=== PATIENT | male | born 1955 | race Caucasian/White ===

== ENCOUNTER 2018-11-02 12:22 | Inpatient (IN) | payer OTHER ==
[2018-11-02] VITALS (9 sets, daily range): BP systolic 114–134; BP diastolic 43–75; BMI 26.8
--- NOTE | ~2018-11-02 | HEMODYNAMI ---
PATIENT:GALILEO RAMIREZ MEDICAL RECORD: [id number] : 55 [facility] ADMISSION DATE: 11/02/18 Generatedon:11/08/20189:53 Patient name: GALILEO RAMIREZ Patient #: [id number] SSN: DO B: 1955 Date of study: 11/08/2018 Page: Of Hemodynamic Procedure Report Patient Data Patient Demographics Procedure consent was obtained First Name: GALILEO Gender: Male Last Name: JAMES : 1955 Patient #: [id number] Age: 63 year(s) Race: Unknown Additional ID: [id number] Contact details [address]: [address] [place] [address] State: [place] City: [place] Zip code: [address] Admission Admission Data Admission Date: 11/02/2018 Admission Time: 16:23 Room #: D.2108 Procedure Procedure Types Cath Procedure Peripheral Cath Diagnostic Procedure Biliary Procedure Description Procedure Date Procedure Date: 11/08/2018 Procedure Start Time: 9:01 Procedure Staff Name Function Jimmie Kaur MD Performing Physician Cody Carlton RT Monitor Juan Miguel Samuel CRNA Additional personnel Norma Wilkerson RN Nurse Sara Licea RN Nurse ARANZA GILLIAM RT Scrub Procedure Data Cath Procedure Fluoroscopy Diagnostic fluoroscopy Total fluoroscopy Time: 9.8 time: 9.8 min min Diagnostic fluoroscopy Total fluoroscopy dose: 257 dose: 257 mGy mGy Contrast Material Contrast Material Type Amount (ml) Isovue 300 30 Diagnostic catheters Device Type Used For End Catheter Placement Merit Impress KA 2 5Fr 40CM catheter ([id number]) Hemodynamics Rest Heart Rate: 49 (bpm) Snapshots Pre Cath Intra NCS Post Cath Vital Signs Time Heart Resp SPO2 etCO2 NIBP (mmHg) Rhythm Pain Sedation Rate (ipm) (%) (mmHg) Status Level (bpm) 8:42:49 49 2 100 9.8 146/69(120) NSR 0 (11) 10(A) , No pain 8:47:13 55 18 100 12.8 150/67(126) NSR 0 (11) 10(A) , No pain 8:51:35 60 15 96 3.7 131/71(105) NSR 0 (11) 10(A) , No pain 8:55:53 51 15 99 10.5 128/62(105) NSR 0 (11) 10(A) , No pain 9:00:11 54 12 99 9.8 123/61(94) NSR 0 (11) 10(A) , No pain 9:04:27 57 11 99 24.9 128/59(104) NSR 0 (11) 10(A) , No pain 9:08:45 62 12 98 10.5 123/62(100) NSR 0 (11) 10(A) , No pain 9:12:59 63 11 99 20.4 128/66(98) NSR 0 (11) 10(A) , No pain 9:17:15 63 12 99 23.4 132/65(107) NSR 0 (11) 10(A) , No pain 9:21:33 62 12 98 21.9 129/61(102) NSR 0 (11) 10(A) , No pain 9:25:50 62 12 98 23.4 128/64(102) NSR 0 (11) 10(A) , No pain 9:30:05 62 12 98 23.4 129/69(108) NSR 0 (11) 10(A) , No pain 9:34:24 58 13 98 23.4 129/62(100) NSR 0 (11) 10(A) , No pain 9:38:42 60 13 98 23.4 127/64(99) NSR 0 (11) 10(A) , No pain 9:42:56 61 12 97 18.1 131/69(104) NSR 0 (11) 10(A) , No pain 9:47:14 59 14 98 21.1 131/63(102) NSR 0 (11) 10(A) , No pain 9:51:32 49 14 98 20.4 124/59(97) NSR 0 (11) 10(A) , No pain Procedure Log Time Note 8:34:14 Norma Wilkerson RN sent for patient. Start room use. 8:34:19 Time tracking: Regular hours (M-F 7:00 - 5:00) 8:34:24 Plan of Care:Hemodynamics will remain stable., Cardiac rhythm will remain stable., Comfort level will be maintained., Respiratory function will remain adequate., Patient/ family verbilizes understanding of procedure., Procedure tolerated without complication., Recovers from procedure without complications.. 8:34:28 Patient received from Med II to IR Alert and oriented. Tansferred to table in Supine position. 8:34:30 Correct patient and procedure confirmed by team. 8:34:32 Signed procedure consent form obtained from patient. 8:34:34 ECG and BP/O2 sat monitors applied to patient. 8:34:37 8:35:08 Full Disclosure recording started 8:41:32 Vital chart was started 8:41:33 Baseline sample Acquired. 8:44:17 Juan Miguel Samuel CRNA present and monitoring patient for TIVA. 8:44:47 SEE ANESTHESIA NOTE FOR PRE PROCEDURE TIVA 8:44:50 8:48:30 Use device set IR Diagnostic 8:48:31 Sterile Angiographic Pack opened to sterile field. 8:48:32 Bag Decanter (2002S) opened to sterile field. 8:48:46 Right Abdomen was prepped with chlora-prep and draped in sterile fashion. 8:48:48 Alarms reviewed by Jimbo Singh 9:00:20 Physician arrived 9:00:20 --------ALL STOP TIME OUT------ 9:00:22 Final Timeout: patient, procedure, and site verified with staff and physician. All members of the team are in agreement. 9:00:27 Right abdomen site verified by team. 9:00:52 Fire Safety Assessment: A--An alcohol-based skin anteseptic being used preoperatively., C--Open oxygen or nitrous oxide is being used. 9:00:56 Sedation plan: TIVA Medication:Propofol 9:01:26 Maximum allowable Isovue 300 dose 238ml. Physician notified. (300ml for normal creatinines. For patients with creatinine of 1.7 or higher multiply weight(kg) x 5 divided by creatinine.) 9:01:39 Procedure started. 9:01:44 Local anesthetic to Abdominal area with Lidocaine 1% by Jimmie Kaur MD.INITIAL ACCESS ONLY 9:03:16 BAG, DRAINAGE EMPTY 600ML W/ASA (MUL230) opened to sterile field. 9:03:17 STOPCOCK 3-Way Large Bore ([id number]) opened to sterile field. 9:03:17 St Moody 10FR 23CM sheath opened to sterile field. 9:03:18 Disposable Biopsy Forceps (XR046O) opened to sterile field. 9:05:31 Cook BILIARY 12 FR drainage catheter (E76293) opened to sterile field. 9:05:56 SHANTI .035 15cm wire (N09723) opened to sterile field. 9:05:57 SUTURE ETHILON 2-0 BLK MONO FS opened to sterile field. 9:08:58 ROADRUNNER .035 145 glide wire (Q70194) opened to sterile field. 9:13:07 A Tribotek Impress KA 2 5Fr 40CM catheter (13868XN8) was advanced over the wire and used for . 9:13:09 MANN 180cm wire (V42448) opened to sterile field. 9:18:58 ARROW SUPERFLEX 8FR 45CM sheath opened to sterile field. 9:39:52 Procedure ended.(Physican Out) 9:40:13 Fluoroscopy time 09.80 minutes. 9:40:17 Flurop Dose total: 257 9:40:17 Fluoroscopy dose: 257 mGy 9:40:33 Contrast amount:Isovue 300 30ml. 9:40:35 Sharps counted by scrub and verified by R.N. 9:40:53 SEE ANESTHESIA NOTE FOR POST PROCEDURE TIVA 9:49:01 Insertion/operative site no bleeding no hematoma. 9:49:33 Procedure and supply charges have been captured, reviewed, submitted and are correct. 9:53:18 Report given to stylefruits. 9:53:22 Patient transfered to Med II with Bed. 9:53:44 Vital chart was stopped Device Usage Item Name Manufacture Quantity Catalog Hospital Part Current Minimal Lot# / Number Charge Number Stock Stock Serial# Code Sebastián Morrison [id number] 5 Angiographic Health Pack Bag Decanter Microtek 1 [id number] 21012 282330 5 () Medical Inc. BAG, Merit 1 [id number] 468006 739397 022800 5 DRAINAGE Medical EMPTY 600ML W/ASA (DRK102) STOPCOCK [employer]ale [employer] 1 [id number] 304181 4355 033355 [id number] 3-Way Large Bore (O26446) St Moody 10FR St Moody 1 676618 132825 862988 5 23CM sheath Disposable Olympus 1 FB-[id number] 096528 994959 5 Biopsy Forceps (VI740I) Cook BILIARY [facility] 1 B76838 139094 287299 703249 5 [id number] 12 FR drainage catheter (D79971) SHANTI .035 [facility] 1 Y81064 804223 269696 5 [id number] 15cm wire (E73485) SUTURE Ethicon 1 664H 421150 377024 5 ETHILON 2-0 BLK MONO [address] ROADRUNNER [facility] 1 T07111 298354 045332 028596 5 [id number] .035 145 glide wire (T48552) Merit Merit 1 [id number] 413992 310698 5 Impress KA 2 Medical 5Fr 40CM catheter (36285FV9) MANN 180cm Cook [facility] 1 C52312 335117 740775 5 wire (N60288) ARROW Teleflex 1 CL-45437 879910 974538 5 [id number] SUPERFLEX 8FR 45CM sheath Signature Audit [place] Stage Time Signature Unsigned Intra-Procedure 11/08/2018 Cody 9:53:38 AM Bianka RT (R) (CV) Signatures Monitor : Cody Signature : Catrachoield RT Date : Time : [facility] [address] [place] [address]
--- NOTE | ~2018-11-02 | HEMODYNAMI ---
PATIENT:GALILEO RAMIREZ MEDICAL RECORD: [id number] : 55 LOCATION:[facility] D.2301 ADMISSION DATE: 11/02/18 Generatedon:11/03/201813:14 Patient name: GALILEO RAMIREZ Patient #: [id number] SSN: DO B: 1955 Date of study: 11/03/2018 Page: Of Hemodynamic Procedure Report Patient Data Patient Demographics Procedure consent was obtained First Name: GALILEO Gender: Male Last Name: JAMES : 1955 Patient #: [id number] Age: 63 year(s) Race: Unknown Additional ID: [id number] Contact details Address: [address] [place] [address] State: [place] City: [place] Zip code: [address] Admission Admission Data Admission Date: 11/02/2018 Admission Time: 16:23 Room #: D.2301 Procedure Procedure Types Cath Procedure Peripheral Cath Diagnostic Procedure Biliary Procedure Description Procedure Date Procedure Date: 11/03/2018 Procedure Start Time: 12:02 Procedure Staff Name Function Kayce Kruger MD Performing Physician Cody Carlton RT Monitor Barbara Pedraza RT Scrub Norma Wilkerson RN Nurse Juan Miguel Samuel BILINGUAL RESEARCH INTERVIEWER Additional personnel Sara Licea RN Nurse Procedure Data Cath Procedure Fluoroscopy Diagnostic fluoroscopy Total fluoroscopy Time: time: 15.4 min 15.4 min Diagnostic fluoroscopy Total fluoroscopy dose: 226 dose: 226 mGy mGy Procedure Medications Medication Administration Route Dosage Heparin Flush Bag added to field 3 bags (1000units/500ml NS) Lidocaine 1% added to field 20 Hemodynamics Rest Heart Rate: 45 (bpm) Pre Cath Intra NCS Post Cath Vital Signs Time Heart Resp SPO2 etCO2 NIBP (mmHg) Rhythm Pain Sedation Rate (ipm) (%) (mmHg) Status Level (bpm) 11:35:10 52 26 98 15.6 116/85(96) NSR 0 (11) 10(A) , No pain 11:39:22 47 22 100 16.3 118/60(102) NSR 0 (11) 10(A) , No pain 11:43:34 42 16 100 0 129/58(95) NSR 0 (11) 10(A) , No pain 11:47:46 43 15 100 12.6 120/66(101) NSR 0 (11) 10(A) , No pain 11:52:00 44 17 100 17.1 139/60(108) NSR 0 (11) 10(A) , No pain 11:56:12 45 15 10.4 124/61(75) NSR 0 (11) 10(A) , No pain 12:00:30 63 16 100 11.9 140/59(105) NSR 0 (11) 10(A) , No pain 12:04:50 61 16 95 0 127/63(98) NSR 0 (11) 10(A) , No pain 12:09:06 62 17 91 0 109/58(84) NSR 0 (11) 10(A) , No pain 12:13:16 61 14 84 5.2 108/56(80) NSR 0 (11) 10(A) , No pain 12:17:26 60 20 100 0 107/61(86) NSR 0 (11) 10(A) , No pain 12:21:36 65 16 100 18.6 110/56(91) NSR 0 (11) 10(A) , No pain 12:25:46 60 17 100 14.1 119/56(92) NSR 0 (11) 10(A) , No pain 12:29:58 57 15 100 11.9 108/59(85) NSR 0 (11) 10(A) , No pain 12:34:08 55 15 100 0 104/55(83) NSR 0 (11) 10(A) , No pain 12:38:18 50 17 100 0 84/49(59) NSR 0 (11) 10(A) , No pain 12:43:12 61 16 100 6.7 120/66(102) NSR 0 (11) 10(A) , No pain 12:47:26 58 28 100 3.7 113/57(92) NSR 0 (11) 10(A) , No pain 12:51:30 57 21 100 3.7 107/51(78) NSR 0 (11) 10(A) , No pain 12:55:42 55 13 100 2.2 105/49(85) NSR 0 (11) 10(A) , No pain 12:59:52 54 13 100 3.7 103/53(80) NSR 0 (11) 10(A) , No pain 13:04:00 53 14 100 1.4 110/59(86) NSR 0 (11) 10(A) , No pain 13:08:10 53 14 5.2 107/57(82) NSR 0 (11) 10(A) , No pain 13:12:16 51 14 8.1 124/67(104) NSR 0 (11) 10(A) , No pain Medications Time Medication Route Dose Verified Delivered Reason Notes Effe ctiveness by by 11:37:10 Heparin Flush added 3 M J Long M J Long used for Bag to bags MD RINCON procedure (1000units/500ml field NS) 11:37:22 Lidocaine 1% added 20ml M J Long M J Long for local to vial MD RINCON anesthetic field Procedure Log Time Note 11:34:18 Norma Wilkerson RN sent for patient. Start room use. 11:34:20 Time tracking: Regular hours (M-F 7:00 - 5:00) 11:34:25 Plan of Care:Hemodynamics will remain stable., Cardiac rhythm will remain stable., Comfort level will be maintained., Respiratory function will remain adequate., Patient/ family verbilizes understanding of procedure., Procedure tolerated without complication., Recovers from procedure without complications.. 11:34:35 Patient received from ICU to IR Alert and oriented. Tansferred to table in Supine position. 11:34:36 Correct patient and procedure confirmed by team. 11:34:39 Signed procedure consent form obtained from patient. 11:34:40 ECG and BP/O2 sat monitors applied to patient. 11:34:42 Full Disclosure recording started 11:34:43 - 11:34:53 H&P Date Dictated: 11/03/2018 H&P Addendum completed by physician on day of procedure. (MUST COMPLETE FOR ALL OUTPATIENTS). 11:34:55 Pre-procedure instructions explained to patient. 11:34:55 Pre-op teaching completed and patient verbalized understanding. 11:37:08 SEE ANESTHESIA NOTE FOR PRE PROCEDURE TIVA 11:37:10 Heparin Flush Bag (1000units/500ml NS) 3 bags added to field was administered by Kayce Kruger MD; used for procedure; 11:37:22 Lidocaine 1% 20ml vial added to field was administered by Kayce Kruger MD; for local anesthetic; 11:37:36 Juan Miguel Samuel CRNA present and monitoring patient for TIVA. 11:38:10 Use device set IR Diagnostic 11:38:12 Bag Decanter (2002S) opened to sterile field. 11:38:13 Sterile Angiographic Pack opened to sterile field. 11:38:13 Tegaderm 4 x 4 (1626W) opened to sterile field. 11:42:58 Right Abdomen was prepped with betadine and draped in sterile fashion. 12:01:19 Physician arrived 12:01:20 --------ALL STOP TIME OUT------ 12:01:21 Final Timeout: patient, procedure, and site verified with staff and physician. All members of the team are in agreement. 12:01:26 Right abdomen site verified by team. 12:02:04 Fire Safety Assessment: A--An alcohol-based skin anteseptic being used preoperatively., C--Open oxygen or nitrous oxide is being used. 12:02:12 Sedation plan: TIVA Medication:Propofol 12:02:30 Procedure started. 12:02:36 Local anesthetic to Abdominal area with Lidocaine 1% by Kayce Kruger MD.INITIAL ACCESS ONLY 12:03:11 IV Extension Set opened to sterile field. 12:03:11 KIT, INTRODUCER ACCUSTICK II W/C ([id number]) opened to sterile field. 12:07:01 BAG, DRAINAGE EMPTY 600ML W/ASA (AXB707) opened to sterile field. 12:13:18 STOPCOCK 3-Way Large Bore (Z39907) opened to sterile field. 12:13:18 ROADRUNNER FIRM 260CM glide wire (C10525) opened to sterile field. 12:17:57 ARROW SUPERFLEX 8FR 45CM sheath opened to sterile field. 12:18:32 Del Real 180 wire (B29814) opened to sterile field. 12:22:33 GLIDE CATHETER 5FR ANGLED 65cm (CG507) opened to sterile field. 12:33:35 Cook BILIARY 10.2 FR drainage catheter (B39743) opened to sterile field . 12:34:24 AMPLATZ Super stiff Straight 260cm wire ([id number]) opened to sterile field. 12:37:59 SUTURE ETHILON 2-0 BLK MONO FS opened to sterile field. 12:47:38 Procedure ended.(Physican Out) 12:48:17 Fluoroscopy time 15.40 minutes. 12:48:21 Fluoroscopy dose: 226 mGy 12:48:21 Flurop Dose total: 226 12:49:12 SEE ANESTHESIA NOTE FOR POST PROCEDURE TIVA 13:13:49 Procedure and supply charges have been captured, reviewed, submitted an d are correct. 13:14:35 Vital chart was stopped Device Usage Item Name Manufacture Quantity Catalog Hospital Part Current Minimal Lot# / Number Charge Number Stock Stock Serial# Code Bag Decanter Microtek 1 [id number] 52461 808611 5 () Medical Inc. Sterile Cardinal 1 [id number] 180790 179324 5 Angiographic Health Pack Tegaderm 4 x 3M 1 1626W 709276 531655 371915 5 4 (1626W) IV Extension Hospira 1 56039-77 891817 74971 246928 5 [id number] Set KIT, [place] 1 [id number] 653210 776685 759001 5 [id number] INTRODUCER Scientific ACCUSTICK II W/C ([id number]) BAG, Merit 1 [id number] 767769 705817 659165 5 DRAINAGE Medical EMPTY 600ML W/ASA (TWH452) STOPCOCK [employer] 1 M12491 235233 6989 424515 5 2125259 3-Way Large Bore (A80161) ROADRUNNER [employer] 1 B39499 081349 353919 5 0307683 FIRM 260CM glide wire (C24656) ARROW Teleflex 1 CL-12134 256186 832136 5 [id number] SUPERFLEX 8FR 45CM sheath Del Real 180 [employer] [facility] 1 A42574 020041 929458 0634915 5 [id number] wire (J88502) GLIDE Terumo 1 CG507 092857 992472 5 CATHETER 5FR ANGLED 65cm (CG507) Cook BILIARY Cook Medical 1 S31524 066779 676912 437680 5 [id number] 10.2 FR drainage catheter (U40680) AMPLATZ [place] 1 [id number] 213193 03326 068046 5 [id number] Super stiff Scientific Straight 260cm wire ([id number]) SUTURE Ethicon 1 664H 574551 346507 5 ETHILON 2-0 BLK MONO FS Signature Audit [place] Stage Time Signature Unsigned Intra-Procedure 11/03/2018 Cody 1:14:31 PM Shuffield RT (R) (CV) Signatures Monitor : Cody Signature : Catrachoield RT Date : Time : [facility] [address] [place] [address]
--- NOTE | 2018-11-02 12:30 | NUR ---
PT ARRIVES A TRANSFER FROM [facility] FOR RENAL FAILURE AND CLOGGED BILE DUCT. PT IS AWAKE, LETHARGIC, ORIENTED X 4, RESPIRATIONS EVEN AND UNLABORED, ANTERIOR UPPER LOBES CLEAR TO AUSCULTATION, SKIN AND SCLERA ARE YELLOW WARM AND DRY, PULSES EQUAL AND STRONG, SALINE LOCK TO THE RIGHT AC, TRANSPARENT DRESSING CLEAN, DRY AND INTACT, FLUSHED WITHOUT DIFFICULTY, PERIPHAL EDEMA NOTED TO HANDS AND FEET, ROWELL CATHETER IN PLACE DRAINING TO GRAVITY WITH 150 ML OF DARK ORANGE URINE IN BAG, SECURED TO LEG WITH STAT LOCK DEVICE. PT IS BRADYCARDIC, RATE OF 43, S1, S2, DENIES NEEDS, MONITORING ESTABLISHED.
[2018-11-02 15:18] LABS: INR 1.95 (0.85-1.17); PROTIME 21.6 SECONDS (11.6-15.0)
[2018-11-02 15:19] LABS: APTT 36.9 SECONDS (22.8-39.4)
[2018-11-02 15:20] LABS: HEMATOCRIT 36.9 % (42.0-54.0); HEMOGLOBIN 13.5 g/dL (13.5-17.5); MCH 30.9 pg (26.0-34.0); MCHC 36.6 g/dL (31.0-37.0); MCV 84.4 fL (80.0-100.0); PLATELET COUNT 183 10x3/uL (130-400); RBC 4.37 10x6/uL (4.20-6.10); RDW 21.3 % (11.5-14.5); WBC 48.6 10x3/uL (4.8-10.8)
[2018-11-02 15:42] LABS: ALBUMIN 1.6 g/dL (3.4-5.0); ANION GAP 26.7 mmol/L (8-16); CALCIUM 8.1 mg/dL (8.5-10.1); CARBON DIOXIDE 14.1 mmol/L (21.0-32.0); CREATININE - SERUM 8.2 mg/dL (0.6-1.3); POTASSIUM - SERUM 3.8 mmol/L (3.5-5.1)
[2018-11-02 15:44] LABS: BILIRUBIN - TOTAL 33.56 mg/dL (0.2-1.3); PROTEIN - SERUM 5.3 g/dL (6.4-8.2)
--- NOTE | 2018-11-02 16:10 | NUR ---
1600 LAB NOTIFIED OF DRAW REQUEST AND ROOM NUMBER.
[2018-11-02 16:24] LABS: LYMPHOCYTES 67 % (15-50); NEUTROPHILS 33 % (40-80); PLATELET ESTIMATE NORMAL
--- NOTE | 2018-11-02 18:18 | NUR ---
PT ARRIVED ON UNIT VIA STRETCHER, HOOKED TO MONITORS, PT LETHARGIC AT THIS TIME, DOES AROUSE AND ANSWERS QUESTIONS, ALL PPP, VSS, CALL LIGHT IN REACH
--- NOTE | 2018-11-02 18:34 | NUR ---
PROCEDURE WAS INCOMPLETE. FAILED TO CANNULATE EFFORTS TO CANNULATE, NO BILE RETURN.
--- NOTE | 2018-11-02 19:00 | NUR ---
PT LETHARGIC, WILL AROUSE TO VOICE AND ANSWER MOST QUESTIONS. SHALLOW RESPIRATIONS, CLEAR/DIMINISHED LUNG SOUNDS. 2L O2 VIA NC, SPO2 97. PERIPHERAL PULSES PRESENT. BRADYCARDIC ON MONIOR, HR 55. ROWELL INTACT AND DRAINING DARK URINE. EYES AND SKIN JAUNDICED. MOUTH DRY, ORAL CARE PROVIDED AT THIS TIME. TEMP 95, CLAU HUGGER TURNED ON AT THIS TIME. PT REPOSITIONED FOR COMFORT. DENIES NEEDS AT THIS TIME. ROOM VISIBLE FROM NURSES STATION. CPOC.
--- NOTE | 2018-11-02 21:00 | NUR ---
INCONTINENT OF SMALL FORMED STOOL. PT GIVEN A BATH AND LINEN CHANGE. POSITIONED IN BED WITH PROMINENCES BRIDGED. VSS, DENIES PAIN. CALL LIGHT WITHIN PT REACH, ROOM VISIBLE FROM NURSES STATION. CPOC.
[2018-11-02] MEDS ORDERED: BAYER CHEWABLE81 MG PO (21:21)
--- NOTE | 2018-11-02 22:00 | NUR ---
NO VISITORS FOR [id number] VISITATION.
--- NOTE | 2018-11-02 23:00 | NUR ---
REASSESSMENT COMPLETE, SEE FLOWSHEET FOR ALL CHANGES. PT REPOSITIONED FOR COMFORT. ROWELL CATH CARE COMPLETED AT THIS TIME. VSS, TEMP 97.7. PT DENIES PAIN. DENIES NEEDS. CALL LIGHT WITHIN PT REACH, ROOM VISIBLE FROM NURSES STATION. CPOC.
[2018-11-02 23:11] LABS: APPEARANCE HAZY (CLEAR); BACTERIA FEW /hpf (NONE SEEN); BILIRUBIN 3+ (NEGATIVE); COLOR BROWN (YELLOW); EPITHELIAL CELLS 0-5 /hpf (0-5); GLUCOSE NEGATIVE (NEGATIVE); GRANULAR CAST 0-5 /lpf (NONE SEEN); HYALINE CAST 0-5 /lpf (NONE SEEN); KETONE NEGATIVE (NEGATIVE); NITRITE NEGATIVE (NEGATIVE); PROTEIN 1+ mg/dL (NEGATIVE); UROBILINOGEN NORMAL (NORMAL)
[2018-11-02 23:13] LABS: UDS - AMPHET NEGATIVE QUAL (NEGATIVE); UDS - BARB NEGATIVE QUAL (NEGATIVE); UDS - BENZO NEGATIVE QUAL (NEGATIVE); UDS - COCAINE NEGATIVE QUAL (NEGATIVE); UDS - OPIATE NEGATIVE QUAL (NEGATIVE); UDS - PCP NEGATIVE QUAL (NEGATIVE); UDS - THC POSITIVE QUAL (NEGATIVE)
[2018-11-03] VITALS (28 sets, daily range): BP systolic 107–130; BP diastolic 52–94; BMI 26.7
--- NOTE | 2018-11-03 00:54 | NUR ---
PT REPOSITIONED FOR COMFORT, PARTIAL LINEN CHANGE COMPLETE. VSS, DENIES PAIN AT THIS TIME. CALL LIGHT WITHIN PT REACH, ROOM VISIBLE FROM NURSES STATION. CPOC.
--- NOTE | 2018-11-03 03:34 | NUR ---
SEE FLOWSHEET FOR REASSESSMENT FINDINGS. PT REPOSITIONED WITH PROMINENCES BRIDGED. VSS, NO C/O PAIN. DENIES NEEDS. CALL LIGHT WITHIN PT REACH, ROOM VISIBLE FROM NURSES STATION. CPOC.
[2018-11-03 04:03] LABS: BASOPHILS 0 % (0-2); EOSINOPHILS 0 % (0-7); HEMATOCRIT 29.8 % (42.0-54.0); HEMOGLOBIN 10.9 g/dL (13.5-17.5); IMMATURE GRANULOCYTES 0.7 % (0-5); LYMPHOCYTES 63.2 % (15-50); MCH 30.3 pg (26.0-34.0); MCHC 36.6 g/dL (31.0-37.0); MCV 82.8 fL (80.0-100.0); MONOCYTES 0.2 % (2-11); NEUTROPHILS 35.9 % (40-80); PLATELET COUNT 142 10x3/uL (130-400); RDW 20.7 % (11.5-14.5); WBC 34.1 10x3/uL (4.8-10.8)
[2018-11-03 04:09] LABS: APTT 41.3 SECONDS (22.8-39.4); INR 1.67 (0.85-1.17); PROTIME 19.1 SECONDS (11.6-15.0)
[2018-11-03 04:28] LABS: ALBUMIN 1.6 g/dL (3.4-5.0); CREATININE - SERUM 7.3 mg/dL (0.6-1.3); PHOSPHOROUS 7.9 mg/dL (2.5-4.9); PROTEIN - SERUM 4.7 g/dL (6.4-8.2)
[2018-11-03 04:38] LABS: ANION GAP 20.8 mmol/L (8-16); CARBON DIOXIDE 21.2 mmol/L (21.0-32.0); MAGNESIUM - SERUM 4.1 mg/dL (1.8-2.4)
[2018-11-03 04:39] LABS: BILIRUBIN - TOTAL 27.92 mg/dL (0.2-1.3); CALCIUM 6.8 mg/dL (8.5-10.1)
--- NOTE | 2018-11-03 05:30 | NUR ---
DR. LARSON UPDATED OF PT STATUS AND CRITICAL LABS, ELECTROLYTE PROTOCOL ORDERED. PER MARSHA, IR TO BE NOTIFIED OF CONSULT BETWEEN [phone] 11/03/18.
--- NOTE | 2018-11-03 06:20 | NUR ---
CONTACTED SANDER COMBS MADE AWARE OF CONSULT.
--- NOTE | 2018-11-03 06:30 | NUR ---
LIZETTE UPDATED ON CRITICAL LAB VALUES, NO NEW ORDERS REC'D AT THIS TIME.
--- NOTE | 2018-11-03 07:00 | NUR ---
SHIFT ASSESSMENT COMPELTED. PT CARE ASSUMED. MONITORS ON AND WORKING, VITALS STABLE, PT SINUS BRADYCARDIA. PT AWAKE AND ALERT, CALL LIGHT WITHIN REACH, SEE FLOW SHEET FOR FURTHER DETAILS. WILL CONTINUE TO OBSERVE.
--- NOTE | 2018-11-03 09:00 | NUR ---
PT AWAKE AND ALERT, MONITORS ON AND WORKING, CALL LIGHT WITHIN REACH, WILL CONTINUE TO OBSERVE.
--- NOTE | 2018-11-03 09:30 | NUR ---
PT IN MRI.
--- NOTE | 2018-11-03 10:00 | NUR ---
PT BACK FROM MRI, COMPLETE LINEN CHANGE COMPLETED AT THIS TIME, MONITORS ON AND WORKING, VITALS STABLE, PT REMAINS SINUS BRADYCARDIA. PT AWAKE AND ALERT, NO SIGNS/SYMPTOMS OF PAIN OR DISCOMFORT NOTED. CALL LIGHT WITHIN REACH, WILL CONTINUE TO OBSERVE.
--- NOTE | 2018-11-03 11:00 | NUR ---
PT AWAKE AND ALERT, NO SIGNS/SYMPTOMS OF PAIN OR DISCOMFORT NOTED AT THIS TIME, MONITORS ON AND WORKING, PT PREOP COMPLETED, CONSENT OBTAINED, SEE FLOW SHEET FOR FURTHER DETIALS. CALL LIGHT WITHIN REACH WILL CONTINUE TO OBSERVE.
[2018-11-03 11:03] LABS: HEMATOCRIT 29.3 % (42.0-54.0); HEMOGLOBIN 10.7 g/dL (13.5-17.5); MCH 30.2 pg (26.0-34.0); MCHC 36.5 g/dL (31.0-37.0); MCV 82.8 fL (80.0-100.0); PLATELET COUNT 125 10x3/uL (130-400); RBC 3.54 10x6/uL (4.20-6.10); RDW 20.7 % (11.5-14.5); WBC 34.9 10x3/uL (4.8-10.8)
--- NOTE | 2018-11-03 11:30 | NUR ---
PT IN IR
[2018-11-03 12:03] LABS: LYMPHOCYTES 49 % (15-50); MONOCYTES 4 % (2-11); NEUTROPHILS 47 % (40-80); PLATELET ESTIMATE NORMAL
--- NOTE | 2018-11-03 13:30 | NUR ---
REC'D PT BACK FROM IR, MONITORS HOOKED UP AND WORKING, VITALS STABLE, WILL CONTINUE TO OBSERVE.
--- NOTE | 2018-11-03 15:00 | NUR ---
MONITORS ON AND WORKING, VITALS STABLE, CALL LIGHT WITHIN REACH, SEE FLOW SHEET FOR FURTHER DETIALS. WILL CONTINUE TO OBSERVE.
--- NOTE | 2018-11-03 17:00 | NUR ---
PT TURNED AND REPOSITIONED FOR COMFORT, MONITORS ON AND WORKING, VITALS STABLE. CALL LIGHT WITHIN REACH, WILL CONTINUE TO OBSERVE.
--- NOTE | 2018-11-03 19:06 | MORECARE ---
CASE MANAGEMENT DISCHARGE SUMMARY PATIENT: GALILEO RAMIREZ UNIT: [id number] ADM DATE: 11/02/18 AGE: 63 : 55 SEX: M ROOM/BED: D.2301 AUTHOR: SUNNI DORAN PHYSICIAN: REFERRING PHYSICIAN: ARNOL BAUER MD DATE OF SERVICE: 11/03/18 Discharge Plan Patient Name: GALILEO RAMIREZ Facility: [facility]:[place] : 1955 Planned Disposition: Home Anticipated Discharge Date: Discharge Date: Expected LOS: Initial Reviewer: [email or web address] Initial Review Date: 11/03/2018 Generated: 11/03/18 8:06 pm Patient Name: GALILEO RAMIREZ Page 48034 at 1906 All edits/amendments must be made on the electronic document DICTATION DATE: 11/03/181904 PUPIL PERSONNEL SERVICES DIRECTOR: LESLIE 11/03/181904 RPT#: [id number] DC DATE: STATUS: ADM IN [facility] [address] [place] [address] END OF REPORT
--- NOTE | 2018-11-03 19:13 | MORECARE ---
CASE MANAGEMENT DISCHARGE SUMMARY PATIENT: GALILEO RAMIREZ UNIT: [id number] ADM DATE: 11/02/18 AGE: 63 : 55 SEX: M ROOM/BED: D.2301 AUTHOR: SUNNI DORAN PHYSICIAN: REFERRING PHYSICIAN: ARNOL BAUER MD DATE OF SERVICE: 11/03/18 Discharge Plan Patient Name: GALILEO RAMIREZ [facility] [facility] 1955 Planned Disposition: Home Anticipated Discharge Date: Discharge Date: Expected LOS: Initial Reviewer: [email or web address] Initial Review Date: 11/03/2018 Generated: 11/03/18 8:12 pm DCPIA - Discharge Planning Initial Assessment Updated by [email or web address]: Irish Wiseman on 11/03/18 7:07 pm * Is the patient Alert and Oriented? Yes * How many steps to enter\exit or inside your home? * PCP DR. BASIL STROUD * Pharmacy [facility] * Preadmission Environment Home with Family * ADLs Independent * Equipment None * List name and contact numbers for known caregivers / representatives who currently or will assist patient after discharge: GALEN RAMIREZ - [facility] - [phone] * Verbal permission to speak to the caregivers and representatives has been obtained from the patient. Yes * Community resources currently utilized None * Additional services required to return to the preadmission environment? No * Can the patient safely return to the preadmission environment? Yes * Has this patient been hospitalized within the prior 30 days at any hospital? No Last DP export: 11/03/18 6:06 pm Patient Name: GALILEO RAMIREZ Page 85357 at 1913 All edits/amendments must be made on the electronic document DICTATION DATE: 11/03/181911 ELEMENTARY READING TUTOR: LESLIE 11/03/181911 RPT#: [id number] DC DATE: STATUS: ADM IN [facility] [address] [place] [address] END OF REPORT
--- NOTE | 2018-11-03 19:15 | NUR ---
DR LIZETTE MEI CALLED BACK GIVEN UDPATE PT STATED PAIN 01/07 FROM ABD ONE TIME DOSE OF BUPRENEX ORDERED
--- NOTE | 2018-11-03 19:38 | NUR ---
REPORT RECEIVED. ASSESSMENT COMPLETE PER FLOW SHEET. VSS. NO NEW CHANGES PT RESTING COMFORTABLY GIVEN ICE WATER FOR COMFORT. WILL CONTINUE TO MONTIOR
--- NOTE | 2018-11-03 21:20 | NUR ---
COMPLETE BB LINEN CHANGE ADM. CHG BATH ADM. DENIES NEEDS RESTING COMFORTABLY WILL CONTINUE TO MONITOR
--- NOTE | 2018-11-03 23:00 | NUR ---
REASSESSMENT COMPLETE PER FLOW SHEET. VSS. NO NEW CHANGES WILL CONTNIUE TO VARINDER
[2018-11-04] VITALS (24 sets, daily range): BP systolic 76–127; BP diastolic 45–90; BMI 26.7
--- NOTE | 2018-11-04 03:00 | NUR ---
REASSESSMENT COMPLETE PER FLOW SHEET. VSS. NO NEW CHANGES PT RESTING COMFORTALBY WILL CONTINUE TO MONITOR
[2018-11-04 03:35] LABS: BASOPHILS 0.1 % (0-2); EOSINOPHILS 0 % (0-7); HEMATOCRIT 25.4 % (42.0-54.0); HEMOGLOBIN 9.1 g/dL (13.5-17.5); IMMATURE GRANULOCYTES 1.3 % (0-5); MCH 30.1 pg (26.0-34.0); MCHC 35.8 g/dL (31.0-37.0); MCV 84.1 fL (80.0-100.0); MONOCYTES 2.1 % (2-11); NEUTROPHILS 33.5 % (40-80); PLATELET COUNT 162 10x3/uL (130-400); RBC 3.02 10x6/uL (4.20-6.10); RDW 21.2 % (11.5-14.5)
[2018-11-04 03:36] LABS: WBC 59.6 10x3/uL (4.8-10.8)
[2018-11-04 03:48] LABS: ALBUMIN 1.5 g/dL (3.4-5.0); BILIRUBIN - TOTAL 24.81 mg/dL (0.2-1.3); CARBON DIOXIDE 21.4 mmol/L (21.0-32.0); CREATININE - SERUM 6.8 mg/dL (0.6-1.3); PHOSPHOROUS 8.8 mg/dL (2.5-4.9); POTASSIUM - SERUM 3.4 mmol/L (3.5-5.1); PROTEIN - SERUM 4.4 g/dL (6.4-8.2)
--- NOTE | 2018-11-04 04:06 | NUR ---
PT AWAKE COOK FISH EGGS LIGHT GIVEN ICE PER REQUEST. DENIES FURTHER NEEDS
--- NOTE | 2018-11-04 04:06 | NUR ---
PT SLEEPING COMFORTABLY VSS NO NEW CHANGES WILL CONTINUE TO MONITOR
--- NOTE | 2018-11-04 06:45 | NUR ---
pt removed l hand piv cath intact. drsg applied. l forearm piv adm upon 1 attempt without difficulty
--- NOTE | 2018-11-04 07:30 | NUR ---
REPORT RECEIVED. PT RESTING QUIETLY. VSS. PT HAS A BILIARY DRAIN TO RUQ WITH GREEN DRAINAGE. PT IS JAUNDICE. PT HAS A ROWELL AND AN IV TO HIS LEFT WRIST. HEAD TO TOE ASSESSMENT DONE. PT CURRENTLY ON ROOM AIR. BED IN LOWEST POSITION. SIDE RAILS UP X2. CALL LIGHT IN REACH.
--- NOTE | 2018-11-04 08:40 | NUR ---
IR NURSE IN WITH PT. NO NEW ORDERS AT THIS TIME.
--- NOTE | 2018-11-04 08:44 | NUR ---
Nutrition follow-up: Diet: Renal; however, no po intake recorded Labs reviewed Wt: 176# +BM RDN following.
[2018-11-04 09:16] LABS: ALPHA FETOPROTEIN -(TUMOR MRK) 2.7 ng/mL (0.0-8.3); CEA 4.9 ng/mL (0.0-4.7)
--- NOTE | 2018-11-04 09:42 | NUR ---
PT RESTING QUIETLY. VSS. PT WAS UNABLE TO EAT BREAKFAST PER NAUSEA. ZOFRAN WAS GIVEN. PT STATED IT EASED THE NAUSEA BUT THAT HE DIDN'T HAVE AN APPETITE. PT DRANK APPLE JUICE AND SOME SPRITE. NO COMPLAINTS OR NEEDS AT THIS TIME. WILL CONTINUE TO MONITOR.
--- NOTE | 2018-11-04 11:30 | NUR ---
PT RESTING QUIETLY. VSS. NO COMPLAINTS OR NEEDS AT THIS TIME. WILL CONTINUE TO MONITOR.
--- NOTE | 2018-11-04 13:31 | NUR ---
NO CHANGES IN PT STATUS. VSS. PT TURNS SELF INDEPENDENTLY. BED IN LOWEST POSITION. CALL LIGHT IN REACH.
--- NOTE | 2018-11-04 15:00 | NUR ---
BILIARY DRAIN FLUSHED. 225ML OUTPUT GREEN DRAINAGE. PT TOLERATED WELL. VSS. WILL CONTINUE TO MONITOR.
--- NOTE | 2018-11-04 17:30 | NUR ---
PT ATTEMPTED TO EAT PRICE COBBLER. WAS TOO NAUSEATED TO EAT MORE THAN A BITE OR 2. DRANK SOME APPLE JUICE. VSS. PT REPOSITIONED HIMSELF IN BED. NO OTHER NEEDS AT THIS TIME. WILL CONTINUE TO MONITOR.
--- NOTE | 2018-11-04 19:00 | NUR ---
REPORT RECEIVED, CARE ASSUMED. PT IS LAYING IN BED WITH EYES OPEN AT THIS TIME. PT COMPLAINS OF PAIN UPON MOVEMENT IN BED, ASKS HOW LONG UNTIL HE CAN HAVE HIS PAIN MEDICATIONS AGAIN. INITIAL ASSESSMENT COMPLETED, SEE FLOWSHEET FOR DETAILS. PT DENIES FURTHER NEEDS AT THIS TIME. NO SIGNS OF ACUTE DISTRESS. WILL CONTINUE TO MONITOR.
--- NOTE | 2018-11-04 21:00 | NUR ---
PT CONTINUES TO REST IN BED. NO CHANGES NOTED AT THIS TIME. NO SIGNS OF ACUTE DISTRESS. WILL CONTINUE TO MONITOR.
--- NOTE | 2018-11-04 23:00 | NUR ---
REASSESSMENT COMPLETED, SEE FLOWSHEET FOR DETAILS. PT GOT IV TUBING TWISTED UP AND HIS IV WAS PULLED OUT IN THE PROCESS. TRIED TO RESITE IV AND WAS UNSUCESSFUL, WILL HAVE ANOTHER NURSE TRY. PT WASHED SELF UP WITH CHG WASH. NO SIGNS OF ACUTE DISTRESS NOTED AT THIS TIME. WILL CONTINUE TO MONITOR.
[2018-11-05] VITALS (13 sets, daily range): BP systolic 107–133; BP diastolic 50–69
--- NOTE | 2018-11-05 01:00 | NUR ---
IV RESITED IN RIGHT AC, NO PT COMPLAINTS. NO SIGNS OF ACUTE DISTRESS. WILL CONTINUE TO MONITOR.
--- NOTE | 2018-11-05 03:00 | NUR ---
REASSESSMENT COMPLETED, SEE FLOWSHEET FOR DETAILS. PT IS RESTING IN BED WITH EYES CLOSED AT THIS TIME. NO ACUTE CHANGES NOTED. PT DENIES NEEDS AT THIS TIME. NO SIGNS OF ACUTE DISTRESS. WILL CONTINUE TO MONITOR.
[2018-11-05 03:36] LABS: HEMOGLOBIN 8.4 g/dL (13.5-17.5); MCV 85.7 fL (80.0-100.0); PLATELET COUNT 154 10x3/uL (130-400); RDW 21.4 % (11.5-14.5)
[2018-11-05 03:50] LABS: ALBUMIN 1.6 g/dL (3.4-5.0); ANION GAP 21.5 mmol/L (8-16); BILIRUBIN - TOTAL 20.15 mg/dL (0.2-1.3); CALCIUM 7.2 mg/dL (8.5-10.1); CARBON DIOXIDE 19.1 mmol/L (21.0-32.0); CREATININE - SERUM 6.5 mg/dL (0.6-1.3); PHOSPHOROUS 7.5 mg/dL (2.5-4.9); POTASSIUM - SERUM 3.6 mmol/L (3.5-5.1); PROTEIN - SERUM 4.5 g/dL (6.4-8.2)
[2018-11-05 03:52] LABS: MAGNESIUM - SERUM 3.8 mg/dL (1.8-2.4)
[2018-11-05 04:14] LABS: EOSINOPHILS 1 % (0-7); LYMPHOCYTES 54 % (15-50); MONOCYTES 1 % (2-11); NEUTROPHILS 44 % (40-80); PLATELET ESTIMATE NORMAL
--- NOTE | 2018-11-05 05:00 | NUR ---
PT IS RESTING IN BED WITH EYES CLOSED AT THIS TIME. NO SIGNS OF ACUTE DISTRESS. NO NEEDS VOICED. WILL CONTINUE TO MONITOR.
--- NOTE | 2018-11-05 06:08 | NUR ---
PT WOKE UP FEARFUL, AND VERY ANXIOUS. STATED THAT HE WAS AFRAID FOR HIS LIFE AND HE WANTED TO GO HOME NOW. HE DIDN'T UNDERSTAND WHY HE COULDN'T USE HIS CELLPHONE, I EXPLAINED TO HIM THAT IT WAS BECAUSE HE DIDN'T BRING HIS HEAD GIRLS GOLF COACH WITH HIM. I ALSO EXPLAINED THAT HE WAS REALLY SICK RIGHT NOW AND THAT HE REALLY DIDN'T NEED TO GO HOME, PT STATED HE WAS FEELING BETTER AND WANTED TO GO HOME. SPOKE WITH CHARGE NURSE ABOUT SITUATION, CHARGE NURSE SPOKE WITH PATIENT. PT REQUESTED TO SPEAK WITH HIS SON. BOTH THIS RN AND CHARGE NURSE AGREE THAT PT SEEMS SLIGHTLY CONFUSED TO SITUATION. PT IS NO LONGER REQUESTING TO GO HOME, BUT IS STILL STATING THAT HE IS FEARFUL FOR HIS LIFE. WILL CONTINUE TO MONITOR.
--- NOTE | 2018-11-05 08:38 | NUR ---
PT ASKING TO HAVE CELL PHONE ART OBJECTS SUPERVISOR AND STATES THAT HE WANTS TO GO HOME. FOUND A CELL PHONE ART OBJECTS SUPERVISOR FOR HIM IN THIS DEPT. DISCUSSED POC. PT VERB UNDERSTANDING.
--- NOTE | 2018-11-05 14:19 | NUR ---
RECIEVED PT FROM ICU. NO COMPLAINTS/CONCERNS OR SIGNS OF DISTRESS. CL IN REACH. REQUESTS A NAP.
--- NOTE | 2018-11-05 18:39 | NUR ---
100 OUT OF ROWELL
--- NOTE | 2018-11-05 19:30 | NUR ---
PT LAYING IN BED ALERT AND ORIENTED WITH NS AT 75ML/HR. SCLERA YELLOW AND SKIN JAUNDICED SKIN. PT RR EVEN AND UNLABORED. VITALS STABLE. PT DENIES ANY PAIN OR NEEDS AT THI TIME. BED LOW CALL LIGHT WITHIN REACH. WILL CONTINUE TO MONITOR.
--- NOTE | 2018-11-06 01:00 | NUR ---
FLUSHED PT BILLARY DRAIN WITH 10CC OF NS. WILL CONTINUE TO MONITOR.
--- NOTE | 2018-11-06 03:11 | NUR ---
I have reviewed this patient and I concur with the Shift Assessment completed by the Licensed Practical Nurse today this shift.
--- NOTE | 2018-11-06 03:21 | NUR ---
EMPTIED PT'S JANEE DRAIN OF 200ML OF GREEN SUBSTANCE. EMPTIED ROWELL 675ML. URINE DARK KYE AND CONCENTRATED. PT DENIES ANY FURTHER NEEDS AT THIS TIME. BED LOW CALL LIGHT WITHIN REACH. WILL CONTINUE TO MONITOR.
[2018-11-06 04:13] LABS: BASOPHILS 0.1 % (0-2); EOSINOPHILS 0 % (0-7); HEMATOCRIT 22.9 % (42.0-54.0); HEMOGLOBIN 7.8 g/dL (13.5-17.5); IMMATURE GRANULOCYTES 2.4 % (0-5); LYMPHOCYTES 55.4 % (15-50); MCH 29.8 pg (26.0-34.0); MCHC 34.1 g/dL (31.0-37.0); MCV 87.4 fL (80.0-100.0); MEAN PLATELET VOLUME 11.6 fL (7.4-10.4); MONOCYTES 2.6 % (2-11); NEUTROPHILS 39.5 % (40-80); PLATELET COUNT 135 10x3/uL (130-400); RBC 2.62 10x6/uL (4.20-6.10); RDW 21.4 % (11.5-14.5); WBC 43.8 10x3/uL (4.8-10.8)
[2018-11-06 04:24] LABS: ALBUMIN 1.5 g/dL (3.4-5.0); ANION GAP 17.2 mmol/L (8-16); BILIRUBIN - TOTAL 14.96 mg/dL (0.2-1.3); CALCIUM 7.8 mg/dL (8.5-10.1); CARBON DIOXIDE 19.3 mmol/L (21.0-32.0); CREATININE - SERUM 5.7 mg/dL (0.6-1.3); PHOSPHOROUS 6.9 mg/dL (2.5-4.9); POTASSIUM - SERUM 3.5 mmol/L (3.5-5.1); PROTEIN - SERUM 4.4 g/dL (6.4-8.2)
[2018-11-06 04:26] LABS: MAGNESIUM - SERUM 3.6 mg/dL (1.8-2.4)
--- NOTE | 2018-11-06 06:23 | NUR ---
ROWELL EMPTIED 225ML.
--- NOTE | 2018-11-06 06:30 | NUR ---
PT REQUESTING NAUSEA MEDICATION AT THIS TIME. BED LOW CALL LIGHT WITHI REACH. WILL CONTINUE TO MONITOR.
--- NOTE | 2018-11-06 07:21 | NUR ---
PT AWAKE AND ORIENTED. LYING IN BED ON BACK. BREATHS EVEN/REGULAR. STATES NO COMPLAINTS/QUESTIONS OF RIGHT NOW. APPEARS IN NO DISTRESS. CL IN REACH, SRX2.
[2018-11-06 07:59] VITALS: BP 115/49
--- NOTE | 2018-11-06 09:33 | MORECARE ---
CASE MANAGEMENT DISCHARGE SUMMARY PATIENT: GALILEO RAMIREZ UNIT: [id number] ADM DATE: 11/02/18 AGE: 63 : 55 SEX: M ROOM/BED: D.2101 AUTHOR: SUNNI DORAN PHYSICIAN: REFERRING PHYSICIAN: ARNOL BAUER MD DATE OF SERVICE: 11/06/18 Discharge Plan Patient Name: GALILEO RAMIREZ Facility: [facility]:[place] : 1955 Planned Disposition: Home Anticipated Discharge Date: Discharge Date: Expected LOS: Initial Reviewer: [id number] Initial Review Date: 11/03/2018 Generated: 11/06/18 10:33 am Comments DCP- Discharge Planning Updated by [email or web address]: Camryn Garcia on 11/06/18 8:[address] Patient Name: GALILEO RAMIREZ Admission Status: ER Accout number: [id number] Admission Date: 11-02-2018 : 1955 Admission Diagnosis:CALCULUS OF BILE DUCT W/O CHOLANGITIS OR CHOLECYST W OB Attending: ARNOL BAUER Current LOS: 4 Anticipated DC Date: Planned Disposition: Home Primary Insurance: [employer] Discharge Planning Comments: CM CONSULT FOR HOME HOSPICE. CM AFTER OBTAINING CONSENT TO DO CONSULT EDUCATED PT ON ROLE OF CM AND WENT OVER THE DIFFERENT SERVICES PROVIDING HOSPICE. SIDNEY SIGNED FOR [facility]. CLAY AT [facility] NOTIFED OF REFERRAL. Wool Hat Forming Machine Tender: Camryn Garcia DCP- Discharge Planning Updated by [id number]: Irish Wismean on 11/03/18 6:[address] Patient Name: GALILEO RAMIREZ Admission Status: ER Accout number: [id number] Admission Date: 11-02-2018 : 1955 Admission Diagnosis: Attending: ARNOL BAUER Current LOS: 1 Anticipated DC Date: Planned Disposition: Home Primary Insurance: [employer] Discharge Planning Comments: CM met with patient at bedside after explaining CM role and obtaining verbal consent. Patient lives at home with his son Galen and plans to return there upon discharge. Patient feels this would be a safe discharge. CM discussed availability / needs of home health and medical equipment. Patient denies any discharge needs at this time. Patient states he will have his son drive him home upon discharge. CM will continue to follow and assist as needed with discharge planning / needs. Wool Hat Forming Machine Tender: Irish Wiseman DCPIA - Discharge Planning Initial Assessment Updated by [id number]: Irish Wiseman on 11/03/18 7:07 pm * Is the patient Alert and Oriented? Yes * How many steps to enter\exit or inside your home? * PCP DR. BASIL STROUD * Pharmacy [facility] * Preadmission Environment Home with Family * ADLs Independent * Equipment None * List name and contact numbers for known caregivers / representatives who currently or will assist patient after discharge: GALEN RAMIREZ - SON - [phone] * Verbal permission to speak to the caregivers and representatives has been obtained from the patient. Yes * Community resources currently utilized None * Additional services required to return to the preadmission environment? No * Can the patient safely return to the preadmission environment? Yes * Has this patient been hospitalized within the prior 30 days at any hospital? No Last DP export: 11/03/18 6:12 pm Patient Name: GALILEO RAMIREZ Page 01940 at 0933 All edits/amendments must be made on the electronic document DICTATION DATE: 11/06/18932 ELECTRICIAN RADIO: LESLIE 11/06/18932 RPT#: [id number] DC DATE: STATUS: ADM IN [facility] [address] [place] [address] END OF REPORT
--- NOTE | 2018-11-06 11:46 | NUR ---
PT LYING INBED, SITTING WITH HOSPICE NURSE DISCUSSING HOSPICE. HE WANTS TO GO HOME TODAY ON HOSPICE, TO GET HIS AFFAIRS IN ORDER. HE IS VERY KNOWELDGEABLE AND AMIABLE. DID NOT DISTURB VISITATION. CL IN REACH, SRX2.
[2018-11-06 16:27] VITALS: BP 126/46
--- NOTE | 2018-11-06 18:13 | NUR ---
I have reviewed this patient and I concur with the Shift Assessment completed by the Licensed Practical Nurse today this shift.
--- NOTE | 2018-11-06 19:10 | NUR ---
PT AT REST WITH EYES CLOSED BUT AWAKES FOR EXAM ALERT AND OX4 WITH BED LOW AND LOCKED AND CALL LIGHT IN PLACE ROWELL TO GRAVITY AND JANEE DRAIN WITH BROWN DRAINAGE NOTED. LCTA AND SKIN IS WARM AND DRY INCISIONS WNL.
[2018-11-06 19:45] VITALS: BP 116/51
[2018-11-06 23:44] VITALS: BP 121/46
[2018-11-07] VITALS (9 sets, daily range): BP systolic 116–142; BP diastolic 50–66
--- NOTE | 2018-11-07 02:50 | NUR ---
I have reviewed this patient and I concur with the Shift Assessment completed by the Licensed Practical Nurse today this shift.
[2018-11-07 06:02] LABS: HEMATOCRIT 21.3 % (42.0-54.0); MCHC 33.8 g/dL (31.0-37.0); MCV 88.8 fL (80.0-100.0); MEAN PLATELET VOLUME 11.4 fL (7.4-10.4); PLATELET COUNT 166 10x3/uL (130-400); RDW 20.6 % (11.5-14.5); WBC 42.3 10x3/uL (4.8-10.8)
[2018-11-07 06:03] LABS: HEMOGLOBIN 7.2 g/dL (13.5-17.5)
--- NOTE | 2018-11-07 06:05 | NUR ---
PT MORE ALERT THIS AM DRAINAGE BECOMING DARKER THIS AM ...DRAINED AND FLUSHED WITH 10 CC AT 2000 AND 0600 TOLERATED WELL
[2018-11-07 06:20] LABS: ALBUMIN 1.5 g/dL (3.4-5.0); ANION GAP 18.1 mmol/L (8-16); BILIRUBIN - TOTAL 14.6 mg/dL (0.2-1.3); CARBON DIOXIDE 18.1 mmol/L (21.0-32.0); CREATININE - SERUM 5.1 mg/dL (0.6-1.3); MAGNESIUM - SERUM 3.1 mg/dL (1.8-2.4); PHOSPHOROUS 5.5 mg/dL (2.5-4.9); POTASSIUM - SERUM 3.2 mmol/L (3.5-5.1); PROTEIN - SERUM 4.5 g/dL (6.4-8.2)
--- NOTE | 2018-11-07 07:44 | NUR ---
PATIENT RESTING IN BED. ALERT/ORIENT. NPO. CALL LIGHT WITHIN REACH. VOICES NO NEEDS. WILL COTINUE WITH PLAN OF CARE
[2018-11-07 08:04] LABS: LYMPHOCYTES 52 % (15-50); MONOCYTES 3 % (2-11); NEUTROPHILS 38 % (40-80); PLATELET ESTIMATE NORMAL
[2018-11-07 08:05] LABS: ANISOCYTOSIS OCC; HYPOCHROMASIA OCC; ROULEAUX OCC; STOMATOCYTES OCC; TOXIC GRANULATION OCC
[2018-11-07 08:13] LABS: INR 1.29 (0.85-1.17); PROTIME 15.6 SECONDS (11.6-15.0)
--- NOTE | 2018-11-07 09:28 | NUR ---
PATIENT SIGNED CONSENT FOR CT BONE DEEP BIOPSY
--- NOTE | 2018-11-07 09:32 | NUR ---
TAKEN DOWN BY STAFF FOR DEEP BONE BIOPSY
--- NOTE | 2018-11-07 10:35 | NUR ---
PATIENT RETURNED TO ROOM AFTER BONE BIOSPY. FIRST UNIT OF PRBC STARTED.
--- NOTE | 2018-11-07 10:42 | NUR ---
INITIATED PTS FIRST UNIT OF BLOOD. PRE VITALS STABLE AND REMAINED AT BEDSIDE FOR FIRST 15MINS. NO REACTION NOTED. REPORT GIVEN TO PRIMARY NURSE JEMAL KUHN. DRAINED 150 GREEN VISCOUS LIQUID FROM R.SIDE BILIARY DRAIN. PT DID NOT HAVE A STAT LOCK IN PLACE TO SECURE ROWELL SO I PROVIDED ONE AND PLACED TO R.INNER THIGH, ROWELL DRAINING TO GRAVITY OFF R.SIDE OF BED. NO CURRENT NEEDS. WILL CTM.
--- NOTE | 2018-11-07 11:46 | NUR ---
LAB UNABLE TO DRAW BLOOD FOR K LEVEL DUE TO PATIENT GETTING TWO UNITS OF PRBC, WILL DRAW LATER IN THE DAY
--- NOTE | 2018-11-07 11:51 | NUR ---
PT ASKED ME TO GET HIM A ETCHER PHOTOENGRAVING FOR HIS PHONE WHEN I WENT DOWNSTAIRS. PT GAVE ME 33 DOLLARS, I WENT AND SPENT 15$ BUT BOUGHT THE WRONG ETCHER PHOTOENGRAVING, WENT BACK DOWN, EXCHANGED THE 8$ CORD FOR THE CORD THAT WAS 15$ (7$ DIFFERENCE) AND APPROPRIATE FOR THE PTS PHONE. SPENT TOTAL OF OF 22$, GAVE PT BACK 11$. PT IS PLEASED WITH EXCHANGE, NO COMPLAITNS/CONCERNS VOICED.
--- NOTE | 2018-11-07 12:42 | NUR ---
SECOND UNIT OF PRBC STARTED. PATIETN TOLERATED FIRST UNIT WELL.
--- NOTE | 2018-11-07 12:46 | NUR ---
FIRST UNIT OF BLOOD COMPLETED. NO REACTION NOTED THROUGHOUT TRANSFUSION AND VSS. PT SITTING UP IN BED AND STATES HE IS FEELING GOOD OVERALL. JEMAL KUHN OBTAINED 2ND UNIT OF BLOOD. INITIATED AND WILL REMAIN AT BEDSIDE FOR FIRST 15MINS TO MONITER FOR ANY REACTION. EMPTIED ROWELL BAG OF 500CC VERY DARK CONCENTRATED. PT DENIES ANY CURRENT PAIN OR NEEDS. WILL CTM.
--- NOTE | 2018-11-07 14:46 | MORECARE ---
CASE MANAGEMENT DISCHARGE SUMMARY PATIENT: GALILEO RAMIREZ UNIT: [id number] ADM DATE: 11/02/18 AGE: 63 : 55 SEX: M ROOM/BED: D.2108 AUTHOR: ANDREEA,DOC PHYSICIAN: REFERRING PHYSICIAN: ARNOL BAUER MD DATE OF SERVICE: 11/07/18 Discharge Plan Patient Name: GALILEO RAMIREZ Facility: [facility]:[place] : 1955 Planned Disposition: Home Anticipated Discharge Date: Discharge Date: Expected LOS: Initial Reviewer: [email or web address] Initial Review Date: 11/03/2018 Generated: 11/07/18 3:45 pm Comments DCP- Discharge Planning Updated by [id number]: Lito Somers on 11/07/18 1:[address] Patient Name: GALILEO RAMIREZ Encounter No: [id number] : 1955 Primary Insurance: [employer] Anticipated DC Date: Planned Disposition: Home DCP follow-up note: CM RECEIVED CALL FROM CLAY OF [facility], , WHO INFORMED CM THAT PT'S INSURANCE HAS APPROVED HOSPICE CARE FOR RENAL FAILURE; CLAY MET WITH PT AND PT WILL NOT REQUIRE IMMEDIATE MEDICAL EQUIPMENT FOR DISCHARGE HOME. CM INSTRUCTED CM TO NOTIFY [facility] WHEN PT IS READY TO DISCHARGE HOME AND [facility] WILL ADMIT PT AT HOME AFTER PT'S ARRIVAL THERE. CM MET WITH PT IN ROOM, SHARED INFORMATION LISTED ABOVE. PT STATES HE HAS THOUGHT ABOUT IT AND NOW DOES NOT WANT HOSPICE; PT HAS DECIDED TO HAVE TREATMENT. CM DISCUSSED DISCHARGE PLANNING AND NEEDS, PT REPORTS PLAN TO RETURN HOME WITH HIS SON, DENIES NEEDS FOR DISCHARGE AT THIS TIME. CM PROVIDED HOSPITAL CAFETERIA CASHIER AND CM CONTACT PHONE NUMBERS TO PT. PT PLANS TO DISCHARGE HOME WITH SON, HAS NO ANTICIPATED DISCHARGE NEEDS AT THIS TIME. CM TO FOLLOW AND ASSIST IF NEEDED. Lito Somers, CASE MANAGEMENT DCP- Discharge Planning Updated by [id number]: Camryn Garcia on 11/06/18 8:[address] Patient Name: GALILEO RAMIREZ Admission Status: ER Accout number: [id number] Admission Date: 11-02-2018 : 1955 Admission Diagnosis:CALCULUS OF BILE DUCT W/O CHOLANGITIS OR CHOLECYST W OB Attending: ARNOL BAUER Current LOS: 4 Anticipated DC Date: Planned Disposition: Home Primary Insurance: [employer] Discharge Planning Comments: CM CONSULT FOR HOME HOSPICE. CM AFTER OBTAINING CONSENT TO DO CONSULT EDUCATED PT ON ROLE OF CM AND WENT OVER THE DIFFERENT SERVICES PROVIDING HOSPICE. SIDNEY SIGNED FOR [facility]. CLAY AT [facility] NOTIFED OF REFERRAL. Dip Unit Operator: Camryn Garcia DCP- Discharge Planning Updated by [id number]: Irish Wiseman on 11/03/18 6:[address] Patient Name: GALILEO RAMIREZ Admission Status: ER Accout number: [id number] Admission Date: 11-02-2018 : 1955 Admission Diagnosis: Attending: ARNOL BAUER Current LOS: 1 Anticipated DC Date: Planned Disposition: Home Primary Insurance: [employer] Discharge Planning Comments: CM met with patient at bedside after explaining CM role and obtaining verbal consent. Patient lives at home with his son Galen and plans to return there upon discharge. Patient feels this would be a safe discharge. CM discussed availability / needs of home health and medical equipment. Patient denies any discharge needs at this time. Patient states he will have his son drive him home upon discharge. CM will continue to follow and assist as needed with discharge planning / needs. Dip Unit Operator: Irish Wiseman DCPIA - Discharge Planning Initial Assessment Updated by [email or web address]: Irish Bowen on 11/03/18 7:07 pm * Is the patient Alert and Oriented? Yes * How many steps to enter\exit or inside your home? * PCP DR. BASIL STROUD * Pharmacy [facility] * Preadmission Environment Home with Family * ADLs Independent * Equipment None * List name and contact numbers for known caregivers / representatives who currently or will assist patient after discharge: GALEN RAMIREZ - SON - [phone] * Verbal permission to speak to the caregivers and representatives has been obtained from the patient. Yes * Community resources currently utilized None * Additional services required to return to the preadmission environment? No * Can the patient safely return to the preadmission environment? Yes * Has this patient been hospitalized within the prior 30 days at any hospital? No Last DP export: 11/06/18 8:33 am Patient Name: GALILEO RAMIREZ Page 12621 at 1446 All edits/amendments must be made on the electronic document DICTATION DATE: 11/07/181444 ENGINE HOSTLER: LESLIE 11/07/181444 RPT#: [id number] DC DATE: STATUS: ADM IN [facility] [address] [place] [address] END OF REPORT
--- NOTE | 2018-11-07 14:47 | NUR ---
DR HALL INTO SEE PATIENT. NEW ORDERS RECEIVED
--- NOTE | 2018-11-07 15:09 | NUR ---
SECOND UNIT OF PRBC COMPLETED. PATIENT TOLERATED WELL
--- NOTE | 2018-11-07 19:05 | NUR ---
AWAKE AND ALERT AND DENIES NEEDS AT THIS TIME JANEE DRAIN AND ROWELL TO GRAVITY AND WNL LCTA AND SKIN WARM AND DRY PT DENIES NEEDS AT THIS TIME ANDBED IS LOW AND LOCKED.
[2018-11-08] VITALS (12 sets, daily range): BP systolic 130–150; BP diastolic 56–78
[2018-11-08 05:13] LABS: APTT 34.9 SECONDS (22.8-39.4); INR 1.24 (0.85-1.17); PROTIME 15.1 SECONDS (11.6-15.0)
[2018-11-08 05:14] LABS: BASOPHILS 0.1 % (0-2); EOSINOPHILS 0.1 % (0-7); HEMATOCRIT 27.7 % (42.0-54.0); HEMOGLOBIN 9.7 g/dL (13.5-17.5); IMMATURE GRANULOCYTES 3.4 % (0-5); LYMPHOCYTES 56.2 % (15-50); MCH 30.8 pg (26.0-34.0); MCV 87.9 fL (80.0-100.0); MEAN PLATELET VOLUME 11.2 fL (7.4-10.4); MONOCYTES 2.7 % (2-11); NEUTROPHILS 37.5 % (40-80); PLATELET COUNT 156 10x3/uL (130-400); RBC 3.15 10x6/uL (4.20-6.10); RDW 19.1 % (11.5-14.5); WBC 39.3 10x3/uL (4.8-10.8)
[2018-11-08 05:18] LABS: ALBUMIN 1.6 g/dL (3.4-5.0); ANION GAP 19.3 mmol/L (8-16); BILIRUBIN - TOTAL 15.53 mg/dL (0.2-1.3); CALCIUM 8.5 mg/dL (8.5-10.1); CARBON DIOXIDE 17.1 mmol/L (21.0-32.0); CREATININE - SERUM 4.4 mg/dL (0.6-1.3); POTASSIUM - SERUM 3.4 mmol/L (3.5-5.1); PROTEIN - SERUM 4.7 g/dL (6.4-8.2)
--- NOTE | 2018-11-08 05:46 | NUR ---
DRAIN WAS FLUSHED WITH 10 CC AND EMPTIED AT 2200 AND 0540
--- NOTE | 2018-11-08 06:01 | NUR ---
VENKATESH 3.4 OPTED NOT TO TREAT PT IS NPO FOR PROCEDURE
--- NOTE | 2018-11-08 08:20 | NUR ---
RECIEVED REPORT. PATIENT IS ALERT AND AWAKE. DRESSING OVER BILI DRAIN SITE ON RIGHT SIDE IS SOILED AND WET WITH SEROSANGUNIOUS FLUID. PATIENT REPORTS THAT IT HAS BEEN THAT WAY. PATIENT IS GOING TO INTERVVENTIONAL RADIOLOGY AND I AM GIVING HIS PREOP MEDS NOW.
--- NOTE | 2018-11-08 08:29 | NUR ---
PATIENT HAS JUST BEEN TAKEN TO INTERVENTIONAL RADIOLOGY.
--- NOTE | 2018-11-08 10:18 | NUR ---
PATIENT RETURNED FROM HIS PROCEDURE. HE IS RESTING QUIETLY WITH EYES CLOSED AT THIS TIME. PATIENT HE APPEARS VERY YELLOW SKIN. IN THE PROCEDURE IN INTERVENTIONAL RADIOLOGY, THEY DID UNKINK THE TUBING SO THAT IT IS ABLE TO DRAIN PROPERLY. THEY REDRESSED THE SOILED DRESSING. PATIENT IS CLEAN AND DRY. VITAL SIGNS ARE STABLE AT THIS TIME.
--- NOTE | 2018-11-08 13:26 | NUR ---
Nutrition follow-up: Pt has been NPO for procedure today Diet just advanced back to renal PO intake continues to be poor; ~25% intake of some meals Labs reviewed Wt: 182# Will offer nutritional supplements Will continue to provide food choices and honor food preferences. RDN following.
--- NOTE | 2018-11-08 18:39 | NUR ---
PATIENT IS SITTING UP IN BED TALKING ON THE PHONE. HE SEEMS IN GOOD SPIRITS AND IS TALKA TIVE AND SMILING. HE REPORTS FEELING BETTER. DRESSING OVER BILI DRAIN IS C/D/I, AND HAS BEEN FLUSHED ORDERED. HE HAS BEEN HESATANT TO EAT, BUT HE HAD APPLE JUICE. TREATED HIS POTASSIUM ORDERED AND FOLLOW UP LABS WERE ALSO ORDERED. PATIENT DENIES ANY PAIN OR NEEDS AT THIS TIME.
--- NOTE | 2018-11-08 19:15 | NUR ---
RESTING WITH EYES CLOSED BED IS LOW AND LOCKED DRSG TO DRAIN IS CLEAN AND INTACT AND ROWELL TO GRAVITY CAll light is in reach. LCTA BOWEL SOUNDS X4 PT DID NOT AROUSE DURING EXAM IV PATENT TO RT AC
[2018-11-09 00:08] VITALS: BP 146/69
--- NOTE | 2018-11-09 00:56 | NUR ---
PAIN PILL GIVEN WITH SMALL SIPS OF WATER
--- NOTE | 2018-11-09 02:59 | NUR ---
I have reviewed this patient and I concur with the Shift Assessment completed by the Licensed Practical Nurse today this shift.
[2018-11-09 04:00] VITALS: BP 133/62
[2018-11-09 05:32] LABS: INR 1.18 (0.85-1.17); PROTIME 14.5 SECONDS (11.6-15.0)
[2018-11-09 08:05] LABS: ALBUMIN 1.6 g/dL (3.4-5.0); BILIRUBIN - DIRECT 12.3 mg/dL (0.00-0.30); BILIRUBIN - INDIRECT 3.46 mg/dL (0.00-1.00); BILIRUBIN - TOTAL 15.76 mg/dL (0.2-1.3); CALCIUM 7.9 mg/dL (8.5-10.1); CARBON DIOXIDE 17.5 mmol/L (21.0-32.0); CREATININE - SERUM 3.8 mg/dL (0.6-1.3); POTASSIUM - SERUM 3.6 mmol/L (3.5-5.1); PROTEIN - SERUM 4.1 g/dL (6.4-8.2)
[2018-11-09 08:10] LABS: ANION GAP 17.1 mmol/L (8-16)
[2018-11-09 08:44] VITALS: BP 144/66
[2018-11-09 10:10] LABS: HEMATOCRIT 27.6 % (42.0-54.0); HEMOGLOBIN 9.4 g/dL (13.5-17.5); MCH 30.8 pg (26.0-34.0); MCHC 34.1 g/dL (31.0-37.0); MCV 90.5 fL (80.0-100.0); MEAN PLATELET VOLUME 12.1 fL (7.4-10.4); PLATELET COUNT 161 10x3/uL (130-400); RBC 3.05 10x6/uL (4.20-6.10); RDW 19.8 % (11.5-14.5); WBC 43.7 10x3/uL (4.8-10.8)
[2018-11-09 11:40] VITALS: BP 146/52
[2018-11-09 12:10] LABS: ANISOCYTOSIS OCC; LYMPHOCYTES 23 % (15-50); MONOCYTES 6 % (2-11); NEUTROPHILS 67 % (40-80); PLATELET ESTIMATE NORMAL; ROULEAUX OCC; SMUDGE CELLS 1+
--- NOTE | 2018-11-09 15:29 | NUR ---
I have reviewed this patient and I concur with the Shift Assessment completed by the Licensed Practical Nurse today this shift.
[2018-11-09 15:46] VITALS: BP 142/69
[2018-11-09 20:00] VITALS: BP 149/71
[2018-11-10] VITALS: BP 144/78
--- NOTE | 2018-11-10 00:09 | NUR ---
PATIENT LAYING IN BED. PATIENT IS TALKATIVE AND BECOMES SHORT OF BREATH AFTER TALKING FOR A WHILE. PATIENT HAS NO COMPLAINTS AT THIS TIME. NO DISTRESS NOTED.
--- NOTE | 2018-11-10 01:33 | NUR ---
PATIENT LAYING IN BED. NO COMPLAINTS AT THIS TIME. NO DISTRESS NOTED.
[2018-11-10 04:00] VITALS: BP 149/74
--- NOTE | 2018-11-10 07:30 | NUR ---
A/A/OX4. DENIES ANY PAIN OR NEEDS AT PRESENT TIME. IV PATENT AND INFUSING WELL TO RIGHT AC. PT IS LOOKING FORWARD TO BEING DISCHARGED TODAY AND STATES HIS SON IS GOING TO BE HELPING HIM AT HOME. ASSESSMENT COMPLETED AND WILL CONTINUE POC.
[2018-11-10 08:18] VITALS: BP 152/65
[2018-11-10 09:14] LABS: ALBUMIN 1.5 g/dL (3.4-5.0); ANION GAP 17.9 mmol/L (8-16); BILIRUBIN - TOTAL 15.12 mg/dL (0.2-1.3); CALCIUM 8.4 mg/dL (8.5-10.1); CARBON DIOXIDE 16.3 mmol/L (21.0-32.0); CREATININE - SERUM 3.2 mg/dL (0.6-1.3); POTASSIUM - SERUM 3.2 mmol/L (3.5-5.1); PROTEIN - SERUM 4.6 g/dL (6.4-8.2)
[2018-11-10 09:28] LABS: HEMATOCRIT 27.9 % (42.0-54.0); HEMOGLOBIN 9.6 g/dL (13.5-17.5); MCH 30.9 pg (26.0-34.0); MCHC 34.4 g/dL (31.0-37.0); MCV 89.7 fL (80.0-100.0); MEAN PLATELET VOLUME 11.5 fL (7.4-10.4); PLATELET COUNT 151 10x3/uL (130-400); RBC 3.11 10x6/uL (4.20-6.10); RDW 19.5 % (11.5-14.5)
[2018-11-10 10:20] LABS: ANISOCYTOSIS 1+; LYMPHOCYTES 32 % (15-50); MONOCYTES 9 % (2-11); NEUTROPHILS 54 % (40-80); PLATELET ESTIMATE NORMAL; ROULEAUX OCC
[2018-11-10 10:21] LABS: SMUDGE CELLS OCC
[2018-11-10 12:39] VITALS: BP 148/65
--- NOTE | 2018-11-10 13:30 | NUR ---
I have reviewed this patient and I concur with the Shift Assessment completed by the Licensed Practical Nurse today this shift.
--- NOTE | 2018-11-10 14:25 | MORECARE ---
CASE MANAGEMENT DISCHARGE SUMMARY PATIENT: GALILEO RAMIREZ UNIT: [id number] ADM DATE: 11/02/18 AGE: 63 : 55 SEX: M ROOM/BED: D.2108 AUTHOR: ANDREEA,DOC PHYSICIAN: REFERRING PHYSICIAN: ARNOL BAUER MD DATE OF SERVICE: 11/10/18 Discharge Plan Patient Name: GALILEO RAMIREZ Facility: [facility]:[place] : 1955 Planned Disposition: Home Anticipated Discharge Date: 11/10/18 Discharge Date: Expected LOS: 8 Initial Reviewer: [email or web address] Initial Review Date: 11/03/2018 Generated: 11/10/18 3:25 pm Comments DCP- Discharge Planning Updated by [id number]: Lito Somers on 11/07/18 1:[address] Patient Name: GALILEO RAMIREZ Encounter No: [id number] : 1955 Primary Insurance: [employer] Anticipated DC Date: Planned Disposition: Home DCP follow-up note: CM RECEIVED CALL FROM CLAY OF [facility], , WHO INFORMED CM THAT PT'S INSURANCE HAS APPROVED HOSPICE CARE FOR RENAL FAILURE; CLAY MET WITH PT AND PT WILL NOT REQUIRE IMMEDIATE MEDICAL EQUIPMENT FOR DISCHARGE HOME. CM INSTRUCTED CM TO NOTIFY [facility] WHEN PT IS READY TO DISCHARGE HOME AND [facility] WILL ADMIT PT AT HOME AFTER PT'S ARRIVAL THERE. CM MET WITH PT IN ROOM, SHARED INFORMATION LISTED ABOVE. PT STATES HE HAS THOUGHT ABOUT IT AND NOW DOES NOT WANT HOSPICE; PT HAS DECIDED TO HAVE TREATMENT. CM DISCUSSED DISCHARGE PLANNING AND NEEDS, PT REPORTS PLAN TO RETURN HOME WITH HIS SON, DENIES NEEDS FOR DISCHARGE AT THIS TIME. CM PROVIDED HOSPITAL HEDDLE MACHINE OPERATOR AND CM CONTACT PHONE NUMBERS TO PT. PT PLANS TO DISCHARGE HOME WITH SON, HAS NO ANTICIPATED DISCHARGE NEEDS AT THIS TIME. CM TO FOLLOW AND ASSIST IF NEEDED. Lito Somers, CASE MANAGEMENT DCP- Discharge Planning Updated by [id number]: Camryn Garcia on 11/06/18 8:[address] Patient Name: GALILEO RAMIREZ Admission Status: ER Accout number: [id number] Admission Date: 11-02-2018 : 1955 Admission Diagnosis:CALCULUS OF BILE DUCT W/O CHOLANGITIS OR CHOLECYST W OB Attending: ARNOL BAUER Current LOS: 4 Anticipated DC Date: Planned Disposition: Home Primary Insurance: [employer] Discharge Planning Comments: CM CONSULT FOR HOME HOSPICE. CM AFTER OBTAINING CONSENT TO DO CONSULT EDUCATED PT ON ROLE OF CM AND WENT OVER THE DIFFERENT SERVICES PROVIDING HOSPICE. SIDNEY SIGNED FOR [facility]. CLAY AT [facility] NOTIFED OF REFERRAL. Computing Architect: Camryn Garcia DCP- Discharge Planning Updated by [id number]: Irish Wiseman on 11/03/18 6:[address] Patient Name: GALILEO RAMIREZ Admission Status: ER Accout number: [id number] Admission Date: 11-02-2018 : 1955 Admission Diagnosis: Attending: ARNOL BAUER Current LOS: 1 Anticipated DC Date: Planned Disposition: Home Primary Insurance: [employer] Discharge Planning Comments: CM met with patient at bedside after explaining CM role and obtaining verbal consent. Patient lives at home with his son Galen and plans to return there upon discharge. Patient feels this would be a safe discharge. CM discussed availability / needs of home health and medical equipment. Patient denies any discharge needs at this time. Patient states he will have his son drive him home upon discharge. CM will continue to follow and assist as needed with discharge planning / needs. Computing Architect: Irish Wiseman DCPIA - Discharge Planning Initial Assessment Updated by [id number]: Irish Wiseman on 11/03/18 7:07 pm * Is the patient Alert and Oriented? Yes * How many steps to enter\exit or inside your home? * PCP DR. BASIL STROUD * Pharmacy [facility] * Preadmission Environment Home with Family * ADLs Independent * Equipment None * List name and contact numbers for known caregivers / representatives who currently or will assist patient after discharge: GALEN RAMIREZ - SON - [phone] * Verbal permission to speak to the caregivers and representatives has been obtained from the patient. Yes * Community resources currently utilized None * Additional services required to return to the preadmission environment? No * Can the patient safely return to the preadmission environment? Yes * Has this patient been hospitalized within the prior 30 days at any hospital? No Last DP export: 11/07/18 1:46 p Patient Name: GALILEO RAMIREZ Page [id number] at 1425 All edits/amendments must be made on the electronic document DICTATION DATE: 11/10/181423 SHEET CUTTING OPERATOR: LESLIE 11/10/181423 RPT#: [id number] DC DATE: STATUS: ADM IN [facility] [address] [place] [address] END OF REPORT
--- NOTE | 2018-11-10 14:45 | NUR ---
WHILE GETTING PT READY FOR DISCHARGE, BECAME UNRESPONSIVE AND CALLED [facility]PONSE. DR. HALL CAME IN ROOM AND STATES HE WAS TO BE A NO CODE AND NOT TO DO RAPID. AFTER APPROXIMATELY 15-20 SECONDS HE CAME TOO AND STATED HE HAD BEEN ASLEEP. PT HAS BEEN HAVING EPISODES OF V TACH THROUGHOUT THE DAY BUT IS ASYMPTOMATIC EACH TIME.
--- NOTE | 2018-11-10 14:53 | MORECARE ---
CASE MANAGEMENT DISCHARGE SUMMARY PATIENT: GALILEO RAMIREZ UNIT: [id number] ADM DATE: 11/02/18 AGE: 63 : 55 SEX: M ROOM/BED: D.2105 AUTHOR: SUNNI DORAN PHYSICIAN: REFERRING PHYSICIAN: ARNOL BAUER MD DATE OF SERVICE: 11/10/18 Discharge Plan Patient Name: GALILEO RAMIREZ Facility: [facility]:[place] : 1955 Planned Disposition: Home Anticipated Discharge Date: 11/10/18 Discharge Date: Expected LOS: 8 Initial Reviewer: [email or web address] Initial Review Date: 11/03/2018 Generated: 11/10/18 3:53 pm Comments DCP- Discharge Planning Updated by [email or web address]: Natalie Jim on 11/10/18 1:[address] PATIENT REQUESTED TO SPEAK WITH CM THIS AM. HE WANTS TO BE DISCHARGED TO HOME TODAY WITH HOSPICE. PATIENT'S PRIMARY NURSE S/W CM. WENT TO HIS BEDSIDE 5 TIMES. HE WAS HAVING CARE FROM THE STUDENT NURSE AND HIS PRIMARY NURSE. MEGAN FROM ALSO VISITED TO EVAL HIS DRAIN. CM ADVISED MEGAN THAT THE PATIENT WAS REQUESTING DISCHARGE. WHEN CM WAS ABLE TO VISIT, HE STATED HE WANTED TO BE DISCHARGED TO HOME W/ HOSPICE. NO DISCHARGE ORDERS AT THIS TIME. HE PROVIDED THE CM WITH CLAY MONTANO'S CARD FROM [facility]. HE WANTS TO BE DISCHARGED TODAY. 1130 CM TELEPHONED CLAY AND LEFT A VOICE MAIL. TC TO [facility] OFFICE AND SPOKE W/ HOUSEHOLD WORKER. SHE WILL BEGIN PROCESS FOR DELIVERY OF DME AND ADMISSION. 1330 CLAY VISITED WITH THE PATIENT. WILL PLAN FOR D/C TODAY. CM SPOKE W/ DR HALL FOR DISCHARGE ORDERS. REVISITED THE PATIENT TO UPDATE. PLAN DISCHARGE TO HOME VIA AMBULANCE . HE IS VERY ANXIOUS TO LEAVE. WILL FORWARD CLINICAL TO HIS PRIMARY MD IN [place]. S/W ASSOCIATE PROPERTY MANAGER. DCP- Discharge Planning Updated by [id number]: Lito Somers on 11/07/18 1:[address] Patient Name: GALILEO RAMIREZ Encounter No: [id number] : 1955 Primary Insurance: [employer] Anticipated DC Date: Planned Disposition: Home DCP follow-up note: CM RECEIVED CALL FROM CLAY OF [facility], , WHO INFORMED CM THAT PT'S INSURANCE HAS APPROVED HOSPICE CARE FOR RENAL FAILURE; CLAY MET WITH PT AND PT WILL NOT REQUIRE IMMEDIATE MEDICAL EQUIPMENT FOR DISCHARGE HOME. CM INSTRUCTED CM TO NOTIFY [facility] WHEN PT IS READY TO DISCHARGE HOME AND [facility] WILL ADMIT PT AT HOME AFTER PT'S ARRIVAL THERE. CM MET WITH PT IN ROOM, SHARED INFORMATION LISTED ABOVE. PT STATES HE HAS THOUGHT ABOUT IT AND NOW DOES NOT WANT HOSPICE; PT HAS DECIDED TO HAVE TREATMENT. CM DISCUSSED DISCHARGE PLANNING AND NEEDS, PT REPORTS PLAN TO RETURN HOME WITH HIS SON, DENIES NEEDS FOR DISCHARGE AT THIS TIME. CM PROVIDED HOSPITAL ASSEMBLER TUBING AND CM CONTACT PHONE NUMBERS TO PT. PT PLANS TO DISCHARGE HOME WITH SON, HAS NO ANTICIPATED DISCHARGE NEEDS AT THIS TIME. CM TO FOLLOW AND ASSIST IF NEEDED. Lito Somers, CASE MANAGEMENT DCP- Discharge Planning Updated by [id number]: Camryn Garcia on 11/06/18 8:[address] Patient Name: GALILEO RAMIREZ Admission Status: ER Accout number: [id number] Admission Date: 11-02-2018 : 1955 Admission Diagnosis:CALCULUS OF BILE DUCT W/O CHOLANGITIS OR CHOLECYST W OB Attending: ARNOL BAUER Current LOS: 4 Anticipated DC Date: Planned Disposition: Home Primary Insurance: [facility] Discharge Planning Comments: CM CONSULT FOR HOME HOSPICE. CM AFTER OBTAINING CONSENT TO DO CONSULT EDUCATED PT ON ROLE OF CM AND WENT OVER THE DIFFERENT SERVICES PROVIDING HOSPICE. SIDNEY SIGNED FOR [facility]. CLAY AT [facility] NOTIFED OF REFERRAL. Screener Perfumer: Camryn Garcia DCP- Discharge Planning Updated by [id number]: Irish Wiseman on 11/03/18 6:[address] Patient Name: GALILEO RAMIREZ Admission Status: ER Accout number: [id number] Admission Date: 11-02-2018 : 1955 Admission Diagnosis: Attending: ARNOL BAUER Current LOS: 1 Anticipated DC Date: Planned Disposition: Home Primary Insurance: [employer] Discharge Planning Comments: CM met with patient at bedside after explaining CM role and obtaining verbal consent. Patient lives at home with his son Galen and plans to return there upon discharge. Patient feels this would be a safe discharge. CM discussed availability / needs of home health and medical equipment. Patient denies any discharge needs at this time. Patient states he will have his son drive him home upon discharge. CM will continue to follow and assist as needed with discharge planning / needs. Screener Perfumer: Irish FARIAS - Discharge Planning Initial Assessment Updated by [email or web address]: Irish Wiseman on 11/03/18 7:07 pm * Is the patient Alert and Oriented? Yes * How many steps to enter\exit or inside your home? * PCP DR. BASIL STROUD * Pharmacy [facility] * Preadmission Environment Home with Family * ADLs Independent * Equipment None * List name and contact numbers for known caregivers / representatives who currently or will assist patient after discharge: GALEN RAMIREZ - SON - [phone] * Verbal permission to speak to the caregivers and representatives has been obtained from the patient. Yes * Community resources currently utilized None * Additional services required to return to the preadmission environment? No * Can the patient safely return to the preadmission environment? Yes * Has this patient been hospitalized within the prior 30 days at any hospital? No Last DP export: 11/10/18 1:25 p Patient Name: GALILEO RMAIREZ Page [id number] at 1453 All edits/amendments must be made on the electronic document DICTATION DATE: 11/10/181452 LABORER BEAM HOUSE: LESLIE 11/10/181452 [facility]#: [id number] DC DATE: STATUS: ADM IN [facility] [address] [place] [address] END OF REPORT
--- NOTE | 2018-11-10 15:35 | NUR ---
CALLED TO PTS ROOM AND DR. HALL AT BEDSIDE. PT HAD JUST AND DR. HALL PRONOUNCED. PT'S SON GALEN NOTIFIED AND SPOKE WITH DR. HALL. NAME OF HOME OBTAINED AND WILL NOTIFY. SHIRA NOTIFIED AND DECLINED.
--- NOTE | 2018-11-10 16:24 | MORECARE ---
CASE MANAGEMENT DISCHARGE SUMMARY PATIENT: GALILEO RAMIREZ UNIT: [id number] ADM DATE: 11/02/18 AGE: 63 : 55 SEX: M ROOM/BED: D.2106 AUTHOR: ANDREEADOC PHYSICIAN: REFERRING PHYSICIAN: ARNOL BAUER MD DATE OF SERVICE: 11/10/18 Discharge Plan Patient Name: GALILEO RAMIREZ Facility: [facility]:[place] : 1955 Planned Disposition: Home Anticipated Discharge Date: 11/10/18 Discharge Date: Expected LOS: 8 Initial Reviewer: [email or web address] Initial Review Date: 11/03/2018 Generated: 11/10/18 5:24 pm Comments DCP- Discharge Planning Updated by [id number]: Natalie Jim on 11/10/18 3:[address] PATIENT CODED. DR HALL WAS AT THE BEDSIDE. EXPIRATION. TC TO [facility] AT HOME REGARDING . DCP- Discharge Planning Updated by [email or web address]: Natalie Jim on 11/10/18 1:[address] PATIENT REQUESTED TO SPEAK WITH CM THIS AM. HE WANTS TO BE DISCHARGED TO HOME TODAY WITH HOSPICE. PATIENT'S PRIMARY NURSE S/W CM. WENT TO HIS BEDSIDE 5 TIMES. HE WAS HAVING CARE FROM THE STUDENT NURSE AND HIS PRIMARY NURSE. MEGAN FROM ALSO VISITED TO EVAL HIS DRAIN. CM ADVISED MEGAN THAT THE PATIENT WAS REQUESTING DISCHARGE. WHEN CM WAS ABLE TO VISIT, HE STATED HE WANTED TO BE DISCHARGED TO HOME W/ HOSPICE. NO DISCHARGE ORDERS AT THIS TIME. HE PROVIDED THE CM WITH CLAY MONTANO'S CARD FROM [facility]. HE WANTS TO BE DISCHARGED TODAY. 1130 CM TELEPHONED CLAY AND LEFT A VOICE MAIL. TC TO [facility] OFFICE AND SPOKE W/ BROILER CHEF OR COOK. SHE WILL BEGIN PROCESS FOR DELIVERY OF DME AND ADMISSION. 1330 CLAY VISITED WITH THE PATIENT. WILL PLAN FOR D/C TODAY. CM SPOKE W/ DR HALL FOR DISCHARGE ORDERS. REVISITED THE PATIENT TO UPDATE. PLAN DISCHARGE TO HOME VIA AMBULANCE . HE IS VERY ANXIOUS TO LEAVE. WILL FORWARD CLINICAL TO HIS PRIMARY MD IN [place]. S/W WILDLIFE VETERINARIAN. DCP- Discharge Planning Updated by [id number]: Lito Somers on 11/07/18 1:[address] Patient Name: GALILEO RAMIREZ Encounter No: [id number] : 1955 Primary Insurance: [employer] Anticipated DC Date: Planned Disposition: Home DCP follow-up note: CM RECEIVED CALL FROM CLAY OF [facility], , WHO INFORMED CM THAT PT'S INSURANCE HAS APPROVED HOSPICE CARE FOR RENAL FAILURE; CLAY MET WITH PT AND PT WILL NOT REQUIRE IMMEDIATE MEDICAL EQUIPMENT FOR DISCHARGE HOME. CM INSTRUCTED CM TO NOTIFY [facility] WHEN PT IS READY TO DISCHARGE HOME AND [facility] WILL ADMIT PT AT HOME AFTER PT'S ARRIVAL THERE. CM MET WITH PT IN ROOM, SHARED INFORMATION LISTED ABOVE. PT STATES HE HAS THOUGHT ABOUT IT AND NOW DOES NOT WANT HOSPICE; PT HAS DECIDED TO HAVE TREATMENT. CM DISCUSSED DISCHARGE PLANNING AND NEEDS, PT REPORTS PLAN TO RETURN HOME WITH HIS SON, DENIES NEEDS FOR DISCHARGE AT THIS TIME. CM PROVIDED HOSPITAL RISK ADVISOR AND CM CONTACT PHONE NUMBERS TO PT. PT PLANS TO DISCHARGE HOME WITH SON, HAS NO ANTICIPATED DISCHARGE NEEDS AT THIS TIME. CM TO FOLLOW AND ASSIST IF NEEDED. Lito Somers, CASE MANAGEMENT DCP- Discharge Planning Updated by [id number]: Camryn Garcia on 11/06/18 8:[address] Patient Name: GALILEO RAMIREZ Admission Status: ER Accout number: [id number] Admission Date: 11-02-2018 : 1955 Admission Diagnosis:CALCULUS OF BILE DUCT W/O CHOLANGITIS OR CHOLECYST W OB Attending: ARNOL BAUER Current LOS: 4 Anticipated DC Date: Planned Disposition: Home Primary Insurance: [employer] Discharge Planning Comments: CM CONSULT FOR HOME HOSPICE. CM AFTER OBTAINING CONSENT TO DO CONSULT EDUCATED PT ON ROLE OF CM AND WENT OVER THE DIFFERENT SERVICES PROVIDING HOSPICE. SIDNEY SIGNED FOR [facility]. CLAY AT [facility] NOTIFED OF REFERRAL. Associate Buyer: Camryn Garcia DCP- Discharge Planning Updated by [email or web address]: Irish Wiseman on 11/03/18 6:[address] Patient Name: GAILLEO RAMIREZ Admission Status: ER Accout number: [id number] Admission Date: 11-02-2018 : 1955 Admission Diagnosis: Attending: ARNOL BAUER Current LOS: 1 Anticipated DC Date: Planned Disposition: Home Primary Insurance: [employer] Discharge Planning Comments: CM met with patient at bedside after explaining CM role and obtaining verbal consent. Patient lives at home with his son Galen and plans to return there upon discharge. Patient feels this would be a safe discharge. CM discussed availability / needs of home health and medical equipment. Patient denies any discharge needs at this time. Patient states he will have his son drive him home upon discharge. CM will continue to follow and assist as needed with discharge planning / needs. Associate Buyer: Irish Wiseman DCPIA - Discharge Planning Initial Assessment Updated by [email or web address]: Irish Wiseman on 11/03/18 7:07 pm * Is the patient Alert and Oriented? Yes * How many steps to enter\exit or inside your home? * PCP DR. BASIL STROUD * Pharmacy [facility] * Preadmission Environment Home with Family * ADLs Independent * Equipment None * List name and contact numbers for known caregivers / representatives who currently or will assist patient after discharge: GALEN RAMIREZ - SON - [phone] * Verbal permission to speak to the caregivers and representatives has been obtained from the patient. Yes * Community resources currently utilized None * Additional services required to return to the preadmission environment? No * Can the patient safely return to the preadmission environment? Yes * Has this patient been hospitalized within the prior 30 days at any hospital? No Last DP export: 11/10/18 1:53 p Patient Name: GALILEO RAMIREZ Page 78045 at 1624 All edits/amendments must be made on the electronic document DICTATION DATE: 11/10/181623 SHIRRING MACHINE OPERATOR AUTOMATIC: LESLIE 11/10/181623 RPT#: [id number] DC DATE: STATUS: ADM IN [facility] [address] [place] [address] END OF REPORT
--- NOTE | 2018-11-10 16:50 | NUR ---
[facility] IN [place] NOTIFIED OF BODY TO BE TRANSPORTED. FAMILY REQUESTS THAT PERSONAL BELONGINGS BE SENT WITH HOME.
== END 2018-11-10 19:00 | DRG 435 ==
LOC: D.ER 12:22 → D.M2 16:23 → D.ICU 16:23 → D.M2 11-05 13:18
PROVIDERS: Anesthesiology; Emergency Medicine; Family Medicine; General Practice; Internal Medicine Gastroenterology; Internal Medicine Nephrology; Radiology Diagnostic Radiology; Radiology Vascular & Interventional Radiology; ADMIT Internal Medicine Nephrology; ATTEND Internal Medicine Nephrology
PROC: 0FJB8ZZ Inspection of Hepatobiliary Duct, Via Natural or Artificial Opening Endoscopic (ICD-10-PCS; 2018-11-02)
PROC: 0DB98ZX Excision of Duodenum, Via Natural or Artificial Opening Endoscopic, Diagnostic (ICD-10-PCS; principal; 2018-11-02 15:30)
PROC: 0F9930Z Drainage of Common Bile Duct with Drainage Device, Percutaneous Approach (ICD-10-PCS; 2018-11-03)
PROC: 07DR3ZX Extraction of Iliac Bone Marrow, Percutaneous Approach, Diagnostic (ICD-10-PCS; 2018-11-07)
PROC: 0FB Hepatobiliary System and Pancreas, Excision (ICD-10-PCS; 2018-11-08)
PROC: 0F2BX0Z Change Drainage Device in Hepatobiliary Duct, External Approach (ICD-10-PCS; 2018-11-08)
DX: C25.9 Malignant neoplasm of pancreas, unspecified (principal); K83.1 Obstruction of bile duct; K85.12 Biliary acute pancreatitis with infected necrosis; A41.9 Sepsis, unspecified organism; E43 Unspecified severe protein-calorie malnutrition; G93.41 Metabolic encephalopathy; K85.10 Biliary acute pancreatitis without necrosis or infection; K72.00 Acute and subacute hepatic failure without coma; K80.51 Calculus of bile duct without cholangitis or cholecystitis with obstruction; E87.2 Acidosis; N17.9 Acute kidney failure, unspecified; I50.22 Chronic systolic (congestive) heart failure; I13.0 Hypertensive heart and chronic kidney disease with heart failure and stage 1 through stage 4 chronic kidney disease, or unspecified chronic kidney disease; C91.10 Chronic lymphocytic leukemia of B-cell type not having achieved remission; D50.9 Iron deficiency anemia, unspecified; K59.09 Other constipation; F17.200 Nicotine dependence, unspecified, uncomplicated; I25.10 Atherosclerotic heart disease of native coronary artery without angina pectoris; R00.1 Bradycardia, unspecified; E83.41 Hypermagnesemia; E86.9 Volume depletion, unspecified; D72.829 Elevated white blood cell count, unspecified; E86.0 Dehydration; Z85.47 Personal history of malignant neoplasm of testis; N18.9 Chronic kidney disease, unspecified; I27.20 Pulmonary hypertension, unspecified; R40.2363 Coma scale, best motor response, obeys commands, at hospital admission; R40.2143 Coma scale, eyes open, spontaneous, at hospital admission; R40.2243 Coma scale, best verbal response, confused conversation, at hospital admission; N26.1 Atrophy of kidney (terminal)